=== PATIENT | female | born 1995 | race Caucasian/White ===

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

== ENCOUNTER 2018-06-21 16:01 | Emergency (ER) | payer SELFPAY ==
[~2018-06-21] VITALS: Ht 157.5 cm; Wt 44.0 kg
[2018-06-21 20:12] VITALS: BP 136/95
[2018-06-21] MEDS ORDERED: IBUPROFEN 800 MG TAB PO ONE (21:30)
[2018-06-21] MEDS ORDERED: ONDANSETRON ODT 4 MG TAB PO ONE (21:30)
[2018-06-21] MEDS ORDERED: predniSONE 20 MG TAB PO ONE (21:30)
== END 2018-06-21 22:05 | disposition home or self-care (01) ==
LOC: ER 16:02
DX: R07.89 Other chest pain (principal); R51 Headache; F17.210 Nicotine dependence, cigarettes, uncomplicated; F12.10 Cannabis abuse, uncomplicated; V43.62XA Car passenger injured in collision with other type car in traffic accident, initial encounter; Y93.89 Activity, other specified; Y99.8 Other external cause status; Y92.410 Unspecified street and highway as the place of occurrence of the external cause
CPT/HCPCS: 70450; 70486; 71046; 99284; J7512; Q0162